=== PATIENT | female | born 1970 | race Caucasian/White ===

== ENCOUNTER 2021-07-08 14:09 | Emergency (ER) | payer OTHER ==
[~2021-07-08] VITALS: Ht 162.6 cm; Wt 72.6 kg
[2021-07-08 15:01] LABS: HEMOGLOBIN 15.7 gm/dl (12.3-15.3); RED BLOOD COUNT 4.79 M/UL (4.00-5.10); WHITE BLOOD COUNT 21.3 K/UL (4.5-11.0)
[2021-07-08 15:28] LABS: BUN/CREATININE RATIO 14 (0-10)
[2021-07-08 21:24] LABS: CRYPTOCOCCUS NEOFORMANS/GATTII Not Detected (Negative); CYTOMEGALOVIRUS Not Detected (Negative); ENTEROVIRUS Not Detected (Negative); ESCHERICHIA COLI K1 Not Detected (Negative); HAEMOPHILUS INFLUENZAE Not Detected (Negative); HERPES SIMPLEX VIRUS 1 Not Detected (Negative); HERPES SIMPLEX VIRUS 2 Not Detected (Negative); HUMAN HERPESVIRUS 6 Not Detected (Negative); HUMAN PARECHOVIRUS Not Detected (Negative); LISTERIA MONOCYTOGENES Not Detected (Negative); NEISERRIA MENINGITIDIS Not Detected (Negative); STREPTOCOCCUS AGALACTIAE Not Detected (Negative); STREPTOCOCCUS PNEUMONIAE Not Detected (Negative); VARICELLA ZOSTER VIRUS Not Detected (Negative)
[2021-07-08 21:45] LABS: WBC (AUTOMATED 1 10^3 (0-5)
[2021-07-08 21:52] LABS: GLUCOSE,CSF 82 mg/dL (50-80); TOTAL PROTEIN,CSF 38 mg/dL (20-45)
[2021-07-08 21:52] LABS: HEMOGLOBIN 14.6 gm/dl (12.3-15.3); RED BLOOD COUNT 4.43 M/UL (4.00-5.10); WHITE BLOOD COUNT 18.3 K/UL (4.5-11.0)
[2021-07-09 11:47] LABS: ACINETOBACTER BAUMANNII Not Detected (Negative); CANDIDA ALBICANS Not Detected (Negative); CANDIDA KRUSEI Not Detected (Negative); CANDIDA TROPICALIS Not Detected (Negative); ENTEROCOCCUS Not Detected (Negative); ESCHERICHIA COLI Not Detected (Negative); HAEMOPHILUS INFLUENZAE Not Detected (Negative); KLEBSIELLA OXYTOCA Not Detected (Negative); KLEBSIELLA PNEUMONIAE Not Detected (Negative); KPC-CARBAPENEM-RESISTANCE GENE Not Detected (Negative); PROTEUS Not Detected (Negative); PSEUDOMONAS AERUGINOSA Not Detected (Negative); SERRATIA MARCESANS Not Detected (Negative); STAPHYLOCOCCUS AUREUS Not Detected (Negative); STREP AGALACTIAE (GROUP B) Not Detected (Negative); STREP PYOGENES (GROUP A) Not Detected (Negative); STREPTOCOCCUS Not Detected (Negative); mecA (METHICILLIN RESIST GENE Not Detected (Negative); vanA/B (VANCOMYCIN RESIST GENE Not Detected (Negative)
[2021-07-09 12:55] LABS: STAPHYLOCOCCUS DETECTED (Negative)
== END 2021-07-09 11:35 | disposition short-term general hospital (02) ==
LOC: ER1 14:09
PROVIDERS: Emergency Medicine
DX: R56.9 Unspecified convulsions (principal); F17.210 Nicotine dependence, cigarettes, uncomplicated; Z20.822 Contact with and (suspected) exposure to COVID-19
CPT/HCPCS: 62270; 70450; 71045; 72128; 72131; 80053; 80307; 81001; 82140; 82945; 83605; 83735; 84146; 84157; 85025; 85652; 86140; 87040; 87077; 87150; 87186; 87483; 89051; 96365; 96366; 96367; 96375; 96376; 99285; G0480; J0133; J0696; J1170; J1953; J2060; J2405; J3370; J7030; U0002

== ENCOUNTER → 2021-08-17 | Outpatient (CLI) | payer MEDICARE | LOC: EMI 09:53 | DX: R56.9 Unspecified convulsions (principal) | CPT/HCPCS: 70553; A9577 ==

== ENCOUNTER 2021-09-23 20:49 | Emergency (ER) | payer MEDICARE, OTHER ==
[~2021-09-23 20:49] MED LIST: PERCOCET 5/325 T1 EA PO
[2021-09-23 21:41] LABS: HEMOGLOBIN 12.2 gm/dl (12.3-15.3); RED BLOOD COUNT 3.72 M/UL (4.00-5.10); WHITE BLOOD COUNT 7.5 K/UL (4.5-11.0)
[2021-09-24] MEDS ORDERED: ZOFRAN ODT 4 MG4 MG PO (00:07)
== END 2021-09-24 00:13 | disposition home or self-care (01) ==
LOC: ER1 20:49
PROVIDERS: Physician Assistant
DX: M54.6 Pain in thoracic spine (principal); G89.29 Other chronic pain; S22.089D Unspecified fracture of T11-T12 vertebra, subsequent encounter for fracture with routine healing; N17.9 Acute kidney failure, unspecified; G40.909 Epilepsy, unspecified, not intractable, without status epilepticus; F17.210 Nicotine dependence, cigarettes, uncomplicated; Z79.899 Other long term (current) drug therapy; X58.XXXD Exposure to other specified factors, subsequent encounter
CPT/HCPCS: 72128; 72131; 80053; 85025; 85652; 86140; 93005; 96374; 96375; 99284; J1885; J1953; J2270; J2405

== ENCOUNTER 2021-10-07 20:26 | Observation (INO) | payer OTHER ==
[~2021-10-07] VITALS: Ht 165.1 cm; Wt 67.1 kg
[~2021-10-07 20:26] MED LIST changes: +ZOFRAN ODT 4 MG4 MG PO
[2021-10-07 20:51] LABS: HEMOGLOBIN 12.2 gm/dl (12.3-15.3); RED BLOOD COUNT 3.72 M/UL (4.00-5.10); WHITE BLOOD COUNT 9.3 K/UL (4.5-11.0)
[2021-10-07 21:15] LABS: BUN/CREATININE RATIO 14 (0-10)
[2021-10-09 03:58] LABS: HEMOGLOBIN 10.3 gm/dl (12.3-15.3); RED BLOOD COUNT 3.16 M/UL (4.00-5.10); WHITE BLOOD COUNT 7.2 K/UL (4.5-11.0)
[2021-10-09] MEDS ORDERED: ALPRAZOLAM1 MG PO (10:42)
[2021-10-09] MEDS ORDERED: DEPAKOTE500 MG PO (10:43)
[2021-10-09] MEDS ORDERED: VITAMIN D21250 MCG PO (10:49)
[2021-10-09] MEDS ORDERED: LISINOPRIL40 MG PO (10:52)
[2021-10-09] MEDS ORDERED: ATORVASTATIN CA20 MG PO (10:52)
[2021-10-09] MEDS ORDERED: PROPRANOLOL HCL20 MG PO (10:52)
[2021-10-09] MEDS ORDERED: OYSTER SHELL C500 MG PO (10:56)
[2021-10-10 05:11] LABS: HEMOGLOBIN 10.1 gm/dl (12.3-15.3); RED BLOOD COUNT 3.17 M/UL (4.00-5.10); WHITE BLOOD COUNT 5.5 K/UL (4.5-11.0)
[2021-10-11 04:01] LABS: HEMOGLOBIN 10.6 gm/dl (12.3-15.3); RED BLOOD COUNT 3.26 M/UL (4.00-5.10); WHITE BLOOD COUNT 5.8 K/UL (4.5-11.0)
[2021-10-11] MEDS ORDERED: DEPAKOTE500 MG PO (11:02)
[2021-10-11] MEDS ORDERED: PERCOCET 5/325 T1 EA PO ×2 (11:08→11:23)
[2021-10-11] MEDS ORDERED: LEVOFLOXACIN250 MG PO (11:08)
[2021-10-11] MEDS ORDERED: HYDRALAZINE HCL25 MG PO (11:35)
== END 2021-10-11 12:20 | disposition home or self-care (01) ==
LOC: ER1 20:26 → CDU 10-09 09:42 → M/S 10-09 09:42
PROVIDERS: Emergency Medicine; Physician Assistant; Student in an Organized Health Care Education/Training Program; ADMIT Internal Medicine
DX: G40.909 Epilepsy, unspecified, not intractable, without status epilepticus (principal); N30.00 Acute cystitis without hematuria; B96.20 Unspecified Escherichia coli [E. coli] as the cause of diseases classified elsewhere; G89.29 Other chronic pain; M54.9 Dorsalgia, unspecified; F12.90 Cannabis use, unspecified, uncomplicated; F13.90 Sedative, hypnotic, or anxiolytic use, unspecified, uncomplicated; R32 Unspecified urinary incontinence; I10 Essential (primary) hypertension; F41.9 Anxiety disorder, unspecified; F43.10 Post-traumatic stress disorder, unspecified; N17.9 Acute kidney failure, unspecified; Z91.14 Patient's other noncompliance with medication regimen; Z90.710 Acquired absence of both cervix and uterus; Z72.0 Tobacco use; Z20.822 Contact with and (suspected) exposure to COVID-19
CPT/HCPCS: 36415; 70450; 70551; 80048; 80307; 81001; 83605; 85025; 87077; 87086; 87186; 93005; 96374; 96375; 99285; G0378; G0480; J0360; J0696; J1885; J1953; J2060; J7030; U0002

== ENCOUNTER 2021-10-31 15:01 | Emergency (ER) | payer MEDICARE ==
[~2021-10-31 15:01] MED LIST changes: +ALPRAZOLAM1 MG PO; +ATORVASTATIN CA20 MG PO; +DEPAKOTE500 MG PO; +HYDRALAZINE HCL25 MG PO; +LEVOFLOXACIN250 MG PO; +LISINOPRIL40 MG PO; +OYSTER SHELL C500 MG PO; +PROPRANOLOL HCL20 MG PO; +VITAMIN D21250 MCG PO
[2021-10-31 16:59] LABS: HEMOGLOBIN 13.2 gm/dl (12.3-15.3); RED BLOOD COUNT 3.97 M/UL (4.00-5.10); WHITE BLOOD COUNT 10.6 K/UL (4.5-11.0)
[2021-10-31 17:29] LABS: BUN/CREATININE RATIO 8 (0-10)
== END 2021-10-31 20:00 | disposition home or self-care (01) ==
LOC: ER1 15:01
PROVIDERS: Student in an Organized Health Care Education/Training Program
DX: G40.909 Epilepsy, unspecified, not intractable, without status epilepticus (principal); F32.A Depression, unspecified; F41.9 Anxiety disorder, unspecified; R13.10 Dysphagia, unspecified; I10 Essential (primary) hypertension; F17.200 Nicotine dependence, unspecified, uncomplicated
CPT/HCPCS: 71260; 80053; 85025; 93005; 99284; J2060; Q9967